=== PATIENT | female | born 1995 | race Caucasian/White ===

== ENCOUNTER → 2016-12-23 | Outpatient (REF) ==
[~2016-12-23] MED LIST: NORCO 325 MG-51 TAB; PERCOCET 325 MG1 TA2 PO; PHENERGAN 25 TA25 MG; PROMETHAZINE12.5 M5 PO; YAZ 28 3 MG-0.01 TAB PO
== END ==
LOC: WSOH 13:00
DX: Z02.89 Encounter for other administrative examinations (principal)